=== PATIENT | female | born 1955 | race Caucasian/White ===

== ENCOUNTER 2017-02-14 04:57 | Emergency (ER) | payer MEDICARE, OTHER ==
[2017-02-14 05:06] VITALS: RESP 18; TEMP 98.8
--- NOTE | 2017-02-14 05:35 | ED ---
Lower Extremity Injury HPI - General Source: patient Mode of arrival: wheelchair Limitations: physical limitation - History of Present Illness MD Complaint: leg injury Onset/Timin -: days(s) Injury: Leg: Right Type of Injury: other Place: other Severity: moderate Improves With: nothing Worsens With: weight bearing, palpation Context: other <Vincent Hensley - Last Filed: 02/14/17 05:31> <Prosper Bowling - Last Filed: 02/14/17 08:57> - General Chief Complaint: Extremity Injury, Lower Stated Complaint: LEG PAIN Time Seen by Provider: 02/14/17 05:18 - History of Present Illness Initial Comments: This patient is a 61-year-old woman who presents to be evaluated for right calf pain. The patient stated that she had noticed the pains starting on night. She indicates the distal portion of the right calf. The pain has been constant, mild, unless she attempts to walk in which case it is worse. She has not noted any relieving factors. The pain is an ache. She states that this would come on night, and she had started going to plan a fitness the day before and had been doing a workout, including leg exercises against weight. Patient denies any chest symptoms, including no chest pain, dyspnea, palpitations, lightheadedness or syncope, fever. No past history of blood clot. (Vincent Hensley) - Related Data Home Medications Medication Instructions Recorded Confirmed Atenolol [Tenormin] 25 mg PO DAILY 02/13/15 02/14/17 LORazepam [Ativan] 0.5 mg PO HS PRN 02/13/15 02/14/17 Levothyroxine Sodium [Synthroid] 50 mcg PO DAILY 02/13/15 02/14/17 Pantoprazole Sodium [Protonix] 20 mg PO DAILY 02/13/15 02/14/17 Ergocalciferol (Vitamin D2) 50,000 unit PO MO 02/14/17 02/14/17 [Vitamin D2] busPIRone HCl [Buspar] 10 mg PO DAILY 02/14/17 02/14/17 Allergies Allergy/AdvReac Type Severity Reaction Status Date / Time cinnamon Allergy Swelling Verified 02/14/17 08:27 citalopram hydrobromide AdvReac Rapid Verified 02/14/17 08:27 [From Celexa] Heart Rate Review of Systems ROS Other: All systems not noted in ROS Statement are negative. Constitutional: Denies: fever, chills, weakness Respiratory: Denies: cough, dyspnea, hemoptysis Cardiovascular: Denies: chest pain, palpitations, edema, syncope Gastrointestinal: Denies: abdominal pain, vomiting Musculoskeletal: Denies: joint swelling, arthralgia Neurological: Denies: weakness, numbness <Vincent Hensley - Last Filed: 02/14/17 05:31> ROS Other: All systems not noted in ROS Statement are negative. <Prosper Bowling - Last Filed: 02/14/17 08:57> ROS Statement: Those systems with pertinent positive or pertinent negative responses have been documented in the HPI. Past Medical History Past Medical History: GERD/Reflux, Hypertension, Thyroid Disorder Additional Past Medical History / Comment(s): vitamin D def. History of Any Multi-Drug Resistant Organisms: None Reported Past Surgical History: Joint Replacement, Orthopedic Surgery Additional Past Surgical History / Comment(s): endometriosis, oopharectomy, Past Psychological History: Anxiety, Depression Smoking Status: Never smoker Past Alcohol Use History: None Reported Past Drug Use History: None Reported <Vincent Hensley - Last Filed: 02/14/17 05:31> General Exam Limitations: physical limitation General appearance: alert, in no apparent distress, obese Cardiovascular Exam: Present: regular rate, normal rhythm, normal heart sounds. Absent: systolic murmur, diastolic murmur, rubs, gallop Extremities exam: Present: normal inspection, normal capillary refill, calf tenderness. Absent: pedal edema, joint swelling Neurological exam: Absent: motor sensory deficit Skin exam: Present: warm, dry, intact, normal color. Absent: rash <Vincent Hensley - Last Filed: 02/14/17 05:31> Vital Signs 02/14/17 02/14/17 02/14/17 04:59 06:31 08:14 Temperature 98.8 F Pulse Rate 71 84 70 Respiratory 18 Rate Blood Pressure 145/81 164/76 136/65 O2 Sat by Pulse 99 97 99 Oximetry Medical Decision Making <Vincent Hensley - Last Filed: 02/14/17 05:31> - Lab Data Result diagrams: 02/14/17 05:46 <Prosper Bowling - Last Filed: 02/14/17 08:57> - Medical Decision Making Patient reevaluated at shift change. Patient was pending ultrasound to rule out DVT with slightly elevated d-dimer. Ultrasound is negative for DVT, there is a fluid collection that measures 4.6 x 1.9 x 3.5 cm findings may represent hematoma, this does fit with history of overuse injury and new exercise program the patient has been attempting. Patient has 2+ distal pulses, she is able to flex and dorsiflex at the ankle. No external signs of infection, no erythema, no induration to suggest cellulitis. Patient will observe this area for resolution, she will return with development of fever or signs of infection. She is given orthopedic follow-up. She will ice and elevate his extremity as well as take Aleve for pain control. Diagnosis: Right lower extremity hematoma (Prosper Bowling) - Lab Data Lab Results 02/14/17 02/14/17 02/14/17 Range/Units 05:46 05:46 05:46 WBC 9.7 (3.8-10.6) k/uL RBC 4.57 (3.80-5.40) m/uL Hgb 13.2 (11.4-16.0) gm/dL Hct 40.9 (34.0-46.0) % MCV 89.4 (80.0-100.0) fL MCH 28.9 (25.0-35.0) pg MCHC 32.3 (31.0-37.0) g/dL RDW 13.8 (11.5-15.5) % Plt Count 266 (150-450) k/uL Neutrophils % 66 % Lymphocytes % 21 % Monocytes % 8 % Eosinophils % 3 % Basophils % 1 % Neutrophils # 6.4 (1.3-7.7) k/uL Lymphocytes # 2.0 (1.0-4.8) k/uL Monocytes # 0.8 (0-1.0) k/uL Eosinophils # 0.3 (0-0.7) k/uL Basophils # 0.1 (0-0.2) k/uL D-Dimer 0.73 H (<0.60) mg/L FEU Total Creatine Kinase 76 (30-135) U/L CK-MB (CK-2) 0.5 (0.0-2.4) ng/mL CK-MB (CK-2) Rel Index 0.7 Disposition <Vincent Hensley - Last Filed: 02/14/17 05:31> Time of Disposition: 08:56 <Prosper Bowling - Last Filed: 02/14/17 08:57> Clinical Impression: Hematoma of right lower extremity Disposition: HOME SELF-CARE Condition: Good Instructions: Contusion in Adults (ED), Hematoma (ED) Referrals: Hamzah Gallegos MD [Primary Care Provider] - 1-2 days Jem Nolen DO [Doctor of Osteopathic Medicine] - 1-2 days
[2017-02-14 06:32] LABS: Creatine Kinase MB 0.5 ng/mL (0.0-2.4)
--- NOTE | 2017-02-14 08:22 | US ---
EXAMINATION TYPE: US venous doppler duplex LE RT DATE OF EXAM: 02/14/2017 7:53 AM COMPARISON: US 2016 CLINICAL HISTORY: Pain, possible DVT. Right lower leg pain and swelling x 5 days SIDE PERFORMED: Right TECHNIQUE: The lower extremity deep venous system is examined utilizing real time linear array sonog dirk with graded compression, doppler sonography and color-flow sonography. VESSELS IMAGED: External Iliac Vein (EIV) Common Femoral Vein Deep Femoral Vein Greater Saphenous Vein * Femoral Vein Popliteal Vein Small Saphenous Vein * Proximal Calf Veins (* superficial vessels) Right Leg: Appears negative for DVT, right medial lower leg area of concern: 4.6 x 1.9 x 3.5cm compl ex non vascular area IMPRESSION: Grayscale, color doppler, spectral doppler imaging performed of the deep veins of the lo wer extremities. There is normal flow, compressibility, vascular waveforms. No evident deep venous thrombosis at or above the right knee. There is a mixed echo focus as described area of patient's cli nical concern which is indeterminate, findings could be indicative of hematoma, correlate, follow-up clinically and consider MRI as indicated.
[2017-02-14 08:46] LABS: Basophils # (A) 0.1 k/uL (0-0.2); Basophils % (A) 1 %; Eosinophils # (A) 0.3 k/uL (0-0.7); Eosinophils % (A) 3 %; HCT 40.9 % (34.0-46.0); HGB 13.2 gm/dL (11.4-16.0); Lymphocytes % (A) 21 %; MCH 28.9 pg (25.0-35.0); MCHC 32.3 g/dL (31.0-37.0); MCV 89.4 fL (80.0-100.0); Mean Platelet Volume 8.6; Monocytes # (A) 0.8 k/uL (0-1.0); Monocytes % (A) 8 %; Neutrophils # (A) 6.4 k/uL (1.3-7.7); Neutrophils % (A) 66 %; Platelet Count 266 k/uL (150-450); RBC 4.57 m/uL (3.80-5.40); RDW 13.8 % (11.5-15.5); WBC 9.7 k/uL (3.8-10.6)
[2017-02-14 08:52] LABS: ALT 30 U/L (9-52); AST 19 U/L (14-36); Albumin 3.9 g/dL (3.5-5.0); Alkaline Phosphatase 83 U/L (38-126); Anion Gap 13 mmol/L; Blood Urea Nitrogen 15 mg/dL (7-17); Calcium 9.5 mg/dL (8.4-10.2); Carbon Dioxide 23 mmol/L (22-30); Chloride 104 mmol/L (98-107); Glucose 114 mg/dL (74-99); Potassium 4.3 mmol/L (3.5-5.1); Sodium 140 mmol/L (137-145); Total Bilirubin 0.4 mg/dL (0.2-1.3); Total Protein 7.2 g/dL (6.3-8.2)
[2017-02-14 09:08] VITALS: BP 155/77; PULSE 74
== END 2017-02-14 09:08 | disposition home or self-care (01) ==
LOC: EC 04:57
DX: S80.11XA Contusion of right lower leg, initial encounter (principal); I10 Essential (primary) hypertension; E07.9 Disorder of thyroid, unspecified; K21.9 Gastro-esophageal reflux disease without esophagitis; F41.9 Anxiety disorder, unspecified; E66.9 Obesity, unspecified; Z68.41 Body mass index [BMI] 40.0-44.9, adult; Z98.890 Other specified postprocedural states; Z91.018 Allergy to other foods; Z88.8 Allergy status to other drugs, medicaments and biological substances; Z79.899 Other long term (current) drug therapy; X58.XXXA Exposure to other specified factors, initial encounter
CPT/HCPCS: 36415; 80053; 82550; 82553; 85025; 85379; 99284